=== PATIENT | female | born 1950 | race Two or more races ===

== ENCOUNTER 2024-07-15 05:30 | Day surgery (SDC) | payer OTHER ==
[2024-07-15] MEDS ORDERED: LIDOCAINE HCL 1%/EPINEPHRINE 20ML VIAL IJ ONE (07:45)
[2024-07-15] MEDS ORDERED: POVIDONE-IODINE 118 ML BOTT TOP ONE (07:45)
[2024-07-15] MEDS ORDERED: DIBUCAINE 15 GM OINT..GM. TUBE RECTAL ONE (07:45)
[2024-07-15] MEDS ORDERED: CEFTRIAXONE SODIUM 2,000 MG VIAL IV ONE (07:45)
[2024-07-15] MEDS ORDERED: BUPIVACAINE HCL 30 ML VIAL IJ ONE (07:45)
[2024-07-15] MEDS ORDERED: HEMOSTATIC MATRIX 1 KIT KIT TOP ONE (07:45)
[2024-07-15] MEDS ORDERED: METRONIDAZOLE/SODIUM CHLORIDE 500 MG/100 ML PIGGYBACK IV ONE (07:45)
[2024-07-15] MEDS ORDERED: RECTICARE30 GM TOP (07:56)
[2024-07-15] MEDS ORDERED: PERCOCET 5-3251 EACH PO (07:58)
== END 2024-07-15 12:45 | disposition home or self-care (01) ==
LOC: CIR.AMB 05:30
PROVIDERS: ATTEND Surgery
DX: D12.9 Benign neoplasm of anus and anal canal (principal); K62.1 Rectal polyp

== ENCOUNTER 2024-07-26 08:29 | Emergency (ER) | payer OTHER ==
[~2024-07-26] VITALS: Ht 152.4 cm; Wt 61.7 kg
[~2024-07-26 08:29] MED LIST: PERCOCET 5-3251 EACH PO; RECTICARE30 GM TOP
[2024-07-26] MEDS ORDERED: METOPROLOL SUCC50 MG PO (09:00)
[2024-07-26] MEDS ORDERED: LATANOPROST2.5 ML OP (09:00)
[2024-07-26] MEDS ORDERED: LOSARTAN-HCTZ1 EACH PO (09:01)
[2024-07-26] MEDS ORDERED: ST. JOSEPH ASPI81 M2 PO (09:01)
[2024-07-26] MEDS ORDERED: SIMVASTATIN40 MG PO (09:01)
[2024-07-26] MEDS ORDERED: 0.9 % SODIUM CHLORIDE 1,000 ML IV SCH (09:30)
[2024-07-26 09:54] LABS: HEMATOCRIT 38.6 % (36.0-45.00); HEMOGLOBIN 12.8 g/dL (12.0-15.00); MEAN CORPUSCULAR HEMOGLOBIN 29.9 pg (27.00-32.0); MEAN CORPUSCULAR HGB CONC 33.2 g/dl (32.0-36.0); PLATELET COUNT 242 K/uL (150-450); RED BLOOD COUNT 4.28 M/uL (4.00-6.00); RED CELL DISTRIBUTION WIDTH 13.7 % (11.5-14.5)
[2024-07-26 10:25] LABS: CALCIUM 9.3 mg/dL (8.5-10.1); CREATININE SERUM 1.09 mg/dL (0.55-1.02); GFR 49.2; INR 1.05; POTASSIUM 3.61 mEq/L (3.5-5.1); PROTHROMBIN TIME 11.4 SECONDS (9.0-11.5)
[2024-07-26] MEDS ORDERED: KETOROLAC TROMETHAMINE 30 MG VIAL IV ONE (11:15)
[2024-07-26 13:54] LABS: PH,URINE 6.5 (5.0-8.0); URINE APPEARANCE Clear; URINE BILIRRUBIN Negative (NEGATIVE); URINE BLOOD Negative; URINE COLOR Yellow; URINE GLUCOSE Negative (NEGATIVE); URINE KETONE Negative (NEGATIVE); URINE LEUKOCYTE Trace; URINE NITRATE Negative; URINE PROTEIN Negative (NEGATIVE); URINE UROBILINOGEN 0.2 E.U./dl
[2024-07-26 13:58] LABS: URINE BACTERIA 64.2 uL (0.0-1933); URINE CAST 0.15 uL (0.0-1.40); URINE EPITHELIAL CELLS 8.3 uL (0.0-38.8); URINE RBC 14.6 uL (0.0-20.8); URINE WBC 4.1 uL (0.0-23.2)
[2024-07-26] MEDS ORDERED: NA PHOS,M-B/NA PHOS,DI-BA 1 BOTTLE ENEMA RECTAL ONE (15:15)
[2024-07-26] MEDS ORDERED: MAGNESIUM HYDROXIDE 400 MG/5 ML ML PO STA (15:19)
[2024-07-26] MEDS ORDERED: MINERAL OIL 30 ML BLIST.PACK PO STA (15:19)
[2024-07-26] MEDS ORDERED: LACTULOSE 20 G/30 ML BLIST.PACK PO STA (15:19)
[2024-07-26] MEDS ORDERED: COLACE100 MG PO (17:03)
[2024-07-26] MEDS ORDERED: CIPRO500 MG PO (17:03)
[2024-07-26] MEDS ORDERED: METRONIDAZOLE500 MG PO (17:04)
[2024-07-26] MEDS ORDERED: INTESTINEX680 M1 PO (17:04)
== END 2024-07-26 17:58 | disposition home or self-care (01) ==
LOC: ER 08:31
PROVIDERS: Emergency Medicine
DX: D12.9 Benign neoplasm of anus and anal canal (principal); K59.00 Constipation, unspecified; D72.829 Elevated white blood cell count, unspecified; K62.5 Hemorrhage of anus and rectum; I10 Essential (primary) hypertension; E03.8 Other specified hypothyroidism; Z88.2 Allergy status to sulfonamides
CPT/HCPCS: 36415; 74177; 96365; 96366; 99284; J1885; J7030; Q9965

== ENCOUNTER 2025-03-18 06:00 | Day surgery (SDC) | payer OTHER ==
[2025-03-10 13:54] VITALS: BP 140/60
[~2025-03-18] VITALS: Ht 152.4 cm; Wt 63.5 kg
[~2025-03-18 06:00] MED LIST changes: +CIPRO500 MG PO; +COLACE100 MG PO; +INTESTINEX680 M1 PO; +LATANOPROST2.5 ML OP; +LOSARTAN-HCTZ1 EACH PO; +METOPROLOL SUCC50 MG PO; +METRONIDAZOLE500 MG PO; +SIMVASTATIN40 MG PO; +ST. JOSEPH ASPI81 M2 PO
[2025-03-18] MEDS ORDERED: CHLORHEXIDINE GLUCONATE 120 ML BOTTLE TOP ONE (07:43)
[2025-03-18] MEDS ORDERED: GENTAMICIN SULFATE 40 MG/ML VIAL ONE (07:43)
[2025-03-18] MEDS ORDERED: CEFAZOLIN SODIUM 1,000 MG VIAL ONE (07:50)
== END 2025-03-18 14:55 | disposition home or self-care (01) ==
LOC: CIR.AMB 06:00
PROVIDERS: ATTEND Obstetrics & Gynecology Gynecology
DX: N81.3 Complete uterovaginal prolapse (principal); Z88.2 Allergy status to sulfonamides; Z88.8 Allergy status to other drugs, medicaments and biological substances